=== PATIENT | male | born 1990 | race Hispanic/Latino ===

== ENCOUNTER 2024-03-04 21:37 | Emergency (ER) | payer BC ==
--- OUTSIDE RECORDS SUMMARY | 2024-03-04 21:41 | XMS REPORT | Continuity of Care Document ---
Author Name Unknown Address [address] [place] [address] [facility] Address [address] [facility] [address] [place] [address] Care Team Providers Care Coronary Clinical Specialist Name Role Phone Krishna New Primary Care Physician [phone] Krishna New Attending Clinician Unavailable Edy Quiros MD Attending Clinician [phone] Valentine Ko MD Attending Clinician + [phone] Davide Washington DO Attending Clinician [phone] Nathan Ordoñez MD Attending Clinician [phone] Lien Viveros MD Attending Clinician [phone] CHARISSA MARTINEZ Attending Clinician Unavailable CHARISSA MARTINEZ Attending Clinician Unavailable Charissa Martinez MD Attending Clinician [phone] Davide Washington DO Admitting Clinician [phone] Payers Payer Name Policy Type Policy Number Effective Date Expirati on Date Source [place] [id number] 2018 00:00:00 [facility] Problems Condition Name Condition Details Condition Category Status Onset Date Resolution Date Last Treatment Date Treating Clinician Comments Source E44.0 Moderate protein calorie malnutriti on E44.0 Moderate protein calorie malnutriti on Disease Active 02-28 00:00: 00 [facility] IBD (inflammat ory bowel disease) IBD (inflammat ory bowel disease) Disease Active 02-27 00:00: 00 [facility] Obesity (BMI 30-39.9) Obesity (BMI 30-39.9) Disease Active 02-27 00:00: 00 [facility] Terminal ileitis with complicati on Terminal ileitis with complicati on Disease Active 02-27 00:00: 00 [facility] [id number] Hypertrigl yceridemia Problem [facility] Constipati on Constipati on Problem [facility] Gastroesop hageal reflux disease without esophagiti s Gastroesop hageal reflux disease without esophagiti s Problem [facility] Allergies, Adverse Reactions, Alerts Allergy Name Allergy Type Status Severity Reaction(s) Onset Date Inactive Date Treating Clinician Comments Source NO KNOWN ALLERGIE S Drug Class Active [facility] Social History Social Habit Start Date Stop Date Quantity Comments Source [facility] of tobacco use Cigarette Smoker [facility] Cigarettes smoked current (pack per day) - Reported 2024-02-28 00:00:00 2024-02-28 00:00:00 [facility] Cigarette pack-years 2024-02-28 00:00:00 2024-02-28 00:00:00 [facility] Tobacco use and exposure 2024-02-28 00:00:00 2024-02-28 00:00:00 Smokeless tobacco non-user [facility] History of Social function 2024-02-28 00:00:00 2024-02-28 00:00:00 [facility] Sex assigned at 1990 00:00:00 1990 00:00:00 [facility] Smoking Status Start Date Stop Date Source Tobacco smoking consumption unknown [facility] Occasional tobacco smoker 2024-02-28 00:00:00 [facility] Former Smoker 2024-02-24 00:00:00 2024-02-24 00:00:00 [facility] Medications Ordered Medication Name Filled Medication Name Start Date Stop Date Current Medication? Ordering Clinician Indication Dosage Frequency Signature (SIG) Comments Components Source pantoprazol e (PROTONIX) EC tablet 40 mg 03-03 14:00: 00 Yes 40mg 40 mg, Oral, DAILY, First dose on 03/03/24 at 0900, Until Discontinu ed, Routine [facility] proMETHazin e 12.5 mg tablet 03-03 00:00: 00 Yes [id number] 12.5mg Take 1 tablet by mouth every 4 (four) hours as needed for Nausea and Vomiting (N/V). [facility] budesonide 3 mg 24 hr capsule 03-03 00:00: 00 04-01 04:59 :00 Yes [id number] 9mg Take 3 capsules by mouth every morning for 28 days. [facility] predniSONE (DELTASONE) tablet 40 mg 03-02 22:45: 00 03-02 22:24 :00 No 40mg 40 mg, Oral, ONCE, 1 dose, On Tue03/02/24 at 1745, Routine [facility] morphine (2 mg/mL) injection 2 mg 03-02 06:20: 00 03-02 06:53 :00 No 2mg 2 mg, Slow IV Push, ONCE, 1 dose, On Tue03/02/24 at 0130, Routine [facility] simethicone (GAS RELIEF (SIMETHICON E)) 40 mg/0.6 mL drops 03-01 22:37: 00 03-01 23:50 :31 No PRN, Starting on Audrey 03/01/24 at 1737, Until Audrey 03/01/24 at 1850, Routine, Intra-op [facility] pantoprazol e 20 mg EC tablet 03-01 18:50: 31 Yes 20mg Take 1 tablet by mouth in the morning. [facility] magnesium sulfate in water 4 gram/50 mL (8 %) IV Piggyback 4 g 03-01 11:30: 00 03-01 13:27 :00 No 4g 4 g, IV Piggyback, at 25 mL/hr Administer over 120 Minutes, ONCE, 1 dose, On Tue03/01/24 at 0630, Routine [facility] peg-electro lyte soln (GOLYTELY) 236-22.74-6 .74 -5.86 gram solution 4,000 mL 02-28 23:00: 00 02-28 22:43 :00 No 4000mL 4,000 mL, Oral, ONCE, 1 dose, On Tue02/29/24 at 1800, Routine [facility] bisacodyL (DULCOLAX) tablet 10 mg 02-28 21:00: 00 02-28 20:51 :00 No 10mg 10 mg, Oral, DAILY AT 1500, 1 dose, First dose on Tue02/29/24 at 1600, Routine [facility] peg-electro lyte soln (GOLYTELY) 236-22.74-6 .74 -5.86 gram solution 4,000 mL 02-27 23:00: 00 02-28 00:31 :00 No 4000mL 4,000 mL, Oral, ONCE, 1 dose, On Tue02/28/24 at 1800, Routine [facility] ondansetron (ZOFRAN (PF)) injection 4 mg 02-27 18:05: 52 Yes 4mg 4 mg, Slow IV Push, Q6HPRN, Starting on Tue02/28/24 at 1305, Until Discontinu ed, Routine, Nausea and Vomiting (N/V) [facility] lactated ringers IV infusion 1,000 mL 02-27 09:45: 00 Yes 1000mL at 75 mL/hr, 1,000 mL, IV Infusion, CONTINUOUS , Starting on Tue02/28/24 at 0445, Until Discontinu ed, Routine [facility] proCHLORper azine (COMPAZINE) 5 mg in NaCl 0.9% (NS) piggyback 02-27 09:36: 38 Yes 5mg 5 mg, IV Piggyback, at 100 mL/hr Administer over 30 Minutes, Q6HPRN, Starting on Tue02/28/24 at 0436, Until Discontinu ed, Routine, Nausea and Vomiting (N/V) [facility] pantoprazol e (PROTONIX) injection 40 mg 02-27 09:32: 00 03-02 14:55 :07 No 40mg 40 mg, Slow IV Push, Q24H, First dose on Tue02/28/24 at 0445, Until Discontinu ed [facility] acetaminoph en (TYLENOL) tablet 650 mg 02-27 09:25: 25 Yes 650mg 650 mg, Oral, Q6HPRN, Starting on Tue02/28/24 at 0425, Until Discontinu ed, Routine, Pain (scale 1-3) [facility] NaCl 0.9% (NS) IV infusion 1,000 mL 02-27 05:30: 00 Yes 1000mL at 999 mL/hr, Intravenou s, CONTINUOUS , Starting on Tue02/28/24 at 0030, Until Discontinu ed, Routine [facility] fentanyl PF (SUBLIMAZE (PF)) injection 50 mcg 02-27 05:00: 00 02-27 04:48 :00 No 50ug 50 mcg, Slow IV Push, ONCE, 1 dose, On Tue02/28/24 at 0000, [facility] NaCl 0.9% (NS) IV infusion 1,000 mL 02-27 04:15: 00 Yes 1000mL at 999 mL/hr, Intravenou s, CONTINUOUS , Starting on Tue02/27/24 at 2315, Until Discontinu ed, Routine [facility] iopamidol (ISOVUE 370-500 mL) injection 100 mL 02-27 04:15: 00 02-27 04:15 :00 No [id number] 100mL 100 mL, Intravenou s, ONCE, 1 dose, On Tue02/27/24 at 2315, Routine [facility] fentanyl PF (SUBLIMAZE (PF)) injection 50 mcg 02-27 03:15: 00 02-27 03:13 :00 No 50ug 50 mcg, Slow IV Push, ONCE, 1 dose, On Tue02/27/24 at 2215, [facility] ondansetron (ZOFRAN (PF)) injection 4 mg 02-27 03:15: 00 02-27 03:10 :00 No 4mg 4 mg, Slow IV Push, ONCE, 1 dose, On Tue02/27/24 at 2215, [facility] Pantoprazol e Sodium 20 MG Pantoprazol e Sodium 20 MG No 1{table t} QD Pantoprazo le Sodium 20 MG Vital Signs Vital Name Observation Time Observation Value Comments S ource Systolic blood pressure 2024-03-03 12:18:00 141 mm[Hg] [facility] Diastolic blood pressure 2024-03-03 12:18:00 99 mm[Hg] [facility] Heart rate 2024-03-03 12:18:00 81 /min [facility] Body temperature 2024-03-03 12:18:[address] [facility] Respiratory rate 2024-03-03 12:18:00 16 /min [facility] Oxygen saturation in Arterial blood by Pulse oximetry 2024-03-03 12:18:00 98 /min [facility] Body weight 2024-03-02 09:00:[address] [facility] BMI 2024-03-02 09:00:00 29.97 kg/m2 [facility] Body height 2024-03-01 20:51:[address] [facility] Systolic blood pressure 2024-03-01 20:51:00 149 mm[Hg] [facility] Diastolic blood pressure 2024-03-01 20:51:00 94 mm[Hg] [facility] Heart rate 2024-03-01 20:51:00 98 /min [facility] Body temperature 2024-03-01 20:51:[address] [facility] Respiratory rate 2024-03-01 20:51:00 18 /min [facility] Body height 2024-03-01 20:51:[address] [facility] Body weight 2024-03-01 20:51:[address] [facility] BMI 2024-03-01 20:51:00 29.97 kg/m2 [facility] Oxygen saturation in Arterial blood by Pulse oximetry 2024-03-01 20:51:00 98 /min [facility] Systolic blood pressure 2024-02-28 06:21:00 132 mm[Hg] [facility] Diastolic blood pressure 2024-02-28 06:21:00 94 mm[Hg] [facility] Heart rate 2024-02-28 06:21:00 84 /min [facility] Body temperature 2024-02-28 06:21:[address] [facility] Respiratory rate 2024-02-28 06:21:00 24 /min [facility] Oxygen saturation in Arterial blood by Pulse oximetry 2024-02-28 06:21:00 98 /min [facility] Body height 2024-02-28 02:43:[address] [facility] Body weight 2024-02-28 02:43:[address] [facility] BMI 2024-02-28 02:43:00 29.16 kg/m2 [facility] height 2024-02-20 11:20:00 73 [in_i] Commo n [facility] weight 2024-02-20 11:20:00 267 [lb_av] Comm on [facility] bmi 2024-02-20 11:20:00 35.22 kg/m2 Comm on [facility] height 2022-07-29 09:40:00 73 [in_i] Commo n [facility] weight 2022-07-29 09:40:00 267 [lb_av] Comm on [facility] temperature 2022-07-29 09:40:00 98.9 [degF] Com mon [facility] bmi 2022-07-29 09:40:00 35.22 kg/m2 Comm on [facility] oximetry 2022-07-29 09:40:00 99 % Commo n [facility] respiratory rate 2022-07-29 09:40:00 17 /min [facility] blood pressure systolic 2022-07-29 09:40:00 126 mm[Hg] [facility] blood pressure diastolic 2022-07-29 09:40:00 75 mm[Hg] [facility] height 2020-09-26 08:00:00 73 [in_i] Commo n [facility] weight 2020-09-26 08:00:00 273 [lb_av] Comm on [facility] temperature 2020-09-26 08:00:00 98.5 [degF] Com [facility] bmi 2020-09-26 08:00:00 36.01 kg/m2 Comm on [facility] blood pressure systolic 2020-09-26 08:00:00 125 mm[Hg] Common [facility] blood pressure diastolic 2020-09-26 08:00:00 70 mm[Hg] [facility] height 2020-08-29 08:30:00 73 [in_i] Commo n [facility] weight 2020-08-29 08:30:00 272.6 [lb_av] Co mmon [facility] temperature 2020-08-29 08:30:00 97.3 [degF] Com [facility] bmi 2020-08-29 08:30:00 35.96 kg/m2 Comm on [facility] oximetry 2020-08-29 08:30:00 96 % Commo n [facility] respiratory rate 2020-08-29 08:30:00 17 /min [facility] blood pressure systolic 2020-08-29 08:30:00 130 mm[Hg] [facility] blood pressure diastolic 2020-08-29 08:30:00 78 mm[facility]Hg[facility] Procedures Procedure Date / Time Performed Performing Clinician Source MAGNESIUM 2024-03-02 11:29:[address] [facility] BASIC METABOLIC PANEL (NA, K , CL, CO2, GLUCOSE, BUN, CREATININE, CA) 2024-03-02 11:29:[address] [facility] MAGNESIUM 2024-03-02 11:29:[address] [facility] BASIC METABOLIC PANEL (NA, K , CL, CO2, GLUCOSE, BUN, CREATININE, CA) 2024-03-02 11:29:00 Arie Robles [facility] CBC WITH DIFF 2024-03-02 11:28:[address] [facility] CBC WITH DIFF 2024-03-02 11:28:[address] [facility] COLONOSCOPY (ENDO) 2024-03-01 23:31:[address] [facility] COLONOSCOPY (ENDO) 2024-03-01 23:31:[address] [facility] EGD (ENDO) 2024-03-01 23:29:[address] [facility] EGD (ENDO) 2024-03-01 23:29:[address] [facility] ESOPHAGOGASTRODUODENOSCOPY 2024-03-01 22:09:00 [facility] COLONOSCOPY 2024-03-01 22:09:00 [facility] ESOPHAGOGASTRODUODENOSCOPY 2024-03-01 22:09:00 [facility] COLONOSCOPY 2024-03-01 22:09:00 [facility] MAGNESIUM 2024-03-01 09:28:[address] [facility] BASIC METABOLIC PANEL (NA, K , CL, CO2, GLUCOSE, BUN, CREATININE, CA) 2024-03-01 09:28:00 [facility] CBC WITH DIFF 2024-03-01 09:28:00 [facility] MAGNESIUM 2024-03-01 09:28:00 [facility] BASIC METABOLIC PANEL (NA, K , CL, CO2, GLUCOSE, BUN, CREATININE, CA) 2024-03-01 09:28:00 [facility] CBC WITH DIFF 2024-03-01 09:28:00 [facility] CALPROTECTIN, FECAL 2024-02-29 10:06:00 Rigoberto [facility] CALPROTECTIN, FECAL 2024-02-29 10:06:00 Rigoberto [facility] BASIC METABOLIC PANEL (NA, K , CL, CO2, GLUCOSE, BUN, CREATININE, CA) 2024-02-29 09:54:00 Rigoberto [facility] CBC WITH DIFF 2024-02-29 09:54:00 Rigoberto [facility] BASIC METABOLIC PANEL (NA, K , CL, CO2, GLUCOSE, BUN, CREATININE, CA) 2024-02-29 09:54:00 Rigoberto [facility] CBC WITH DIFF 2024-02-29 09:54:00 Rigoberto [facility] SEDIMENTATION RATE 2024-02-28 19:24:[address] [facility] SEDIMENTATION RATE 2024-02-28 19:24:[address] [facility] LAB ONLY CELIAC SCREEN IGA 2024-02-28 13:11:[address] [facility] C-REACTIVE PROTEIN 2024-02-28 13:11:00 Rigoberto [facility] IRON PANEL 2024-02-28 13:11:00 Rigoberto [facility] PROTHROMBIN TIME / INR 2024-02-28 13:11:00 Rigoberto [facility] ANTI-NUCLEAR ANTIBODY SCREEN 2024-02-28 13:11:[address] [facility] ANTI-NUCLEAR ANTIBODY TITER 2024-02-28 13:11:[address] [facility] ANTI-NUCLEAR ANTIBODY-PATHOL OGIST INTERPRETATION 2024-02-28 13:11:[address] [facility] CELIAC SCREEN 2024-02-28 13:11:[address] [facility] LAB ONLY CELIAC SCREEN IGA 2024-02-28 13:11:00 Arie Robles [facility] C-REACTIVE PROTEIN 2024-02-28 13:11:00 [place], [facility] IRON PANEL 2024-02-28 13:11:00 [place], [facility] PROTHROMBIN TIME / INR 2024-02-28 13:11:00 [place], [facility] ANTI-NUCLEAR ANTIBODY SCREEN 2024-02-28 13:11:00 Arie Robles [facility] ANTI-NUCLEAR ANTIBODY TITER 2024-02-28 13:11:00 Arie Robles [facility] ANTI-NUCLEAR ANTIBODY-PATHOL OGIST INTERPRETATION 2024-02-28 13:11:00 Arie Robles [facility] CELIAC SCREEN 2024-02-28 13:11:00 Arie Robles [facility] BLOOD CULTURE SCREEN 2024-02-28 13:09:00 Arie Robles [facility] HEPATITIS B SURFACE ANTIBODY 2024-02-28 13:09:00 Arie Robles [facility] HEPATITIS B SURFACE ANTIGEN 2024-02-28 13:09:00 Arie Robles [facility] HCV ANTIBODY 2024-02-28 13:09:00 Arie Robles [facility] HAV ANTIBODY (IGG AND IGM) 2024-02-28 13:09:00 Arie Robles [facility] HIV 1/2 AG-AB WITH REFLEX 2024-02-28 13:09:00 Arie Robles [facility] BLOOD CULTURE SCREEN 2024-02-28 13:09:00 Arie Robles [facility] HEPATITIS B SURFACE ANTIBODY 2024-02-28 13:09:00 Robles, Arie [facility] HEPATITIS B SURFACE ANTIGEN 2024-02-28 13:09:[address] [facility] HCV ANTIBODY 2024-02-28 13:09:[address] [facility] HAV ANTIBODY (IGG AND IGM) 2024-02-28 13:09:[address] [facility] HIV 1/2 AG-AB WITH REFLEX 2024-02-28 13:09:[address] [facility] URINALYSIS 2024-02-28 04:02:00 Charissa Martinez [facility] CT ABDOMEN PELVIS W CONTRAST 2024-02-28 03:23:[address] [facility] MAGNESIUM 2024-02-28 03:03:00 Rigoberto [facility] FERRITIN SERUM 2024-02-28 03:03:00 Rigoberto [facility] LIPID PANEL (05182)(TOTAL CHOLESTEROL, TRIGLYCERIDES, HDL) 2024-02-28 03:03:[address] [facility] LIPASE 2024-02-28 03:03:00 Charissa Martinez [facility] COMP. METABOLIC PANEL (08096) 2024-02-28 03:03:00 Charissa Martinez [facility] CBC WITH DIFF 2024-02-28 03:03:[address] [facility] MAGNESIUM 2024-02-28 03:03[facility] 2024-02-28 03:03:00 Rigoberto [facility] LIPID PANEL (82826)(TOTAL CHOLESTEROL, TRIGLYCERIDES, HDL) 2024-02-28 03:03:[address] [facility] Encounters Start Date/Time End Date/Time Encounter Type Admission Type Attending [facility] Care Facility Care Department Encounter ID Source 2024-02-15 08:22[id number] [facility] 2022-07-30 07:36:01 [facility] [id number] [facility] 2022-07-29 09:28:02 [facility] [id number] [facility] 2022-07-28 09:13:01 Outpatient [facility], [facility] [id number] [facility] 2021-07-22 13:59:19 Outpatient [facility] [id number] [facility] 2021-07-22 13:57:55 Outpatient [facility], [facility] [id number] [facility] 2021-07-22 12:36:38 Outpatient New, [facility] [id number] [facility] 2024-02-28 02:30:00 2024-03-03 11:31:00 Hospital Encounter [place], Edy Ko, Valentine [place], Nathan Monroy [facility] [id number] [facility] 2024-03-02 00:00:00 2024-03-02 00:00:00 (TEL) [facility] [id number] [facility] 2024-03-01 16:26:00 2024-03-01 17:22:00 Surgery Lien Viveros [facility] [id number] [facility] 2024-02-27 21:47:00 2024-02-28 01:27:00 Emergency X CHARISSA MARTINEZ WAKILI [facility] ERT [id number] [facility] 2024-02-27 21:47:00 2024-02-28 01:27:00 Emergency Charissa Martinez [facility] [id number] [facility] 2024-02-20 00:00:00 2024-02-20 00:00:00 OFFICE VISIT ESTAB PT LEVEL 3 STLMLC STL[facility]C [id number] [facility] 2024-02-15 00:00:00 2024-02-15 00:00:00 (TEL) STLMLC STLMLC [id number] [facility] 2022-07-30 00:00:00 2022-07-30 00:00:00 (TEL) STLMLC STLMLC [id number] [facility] 2022-07-29 00:00:00 2022-07-29 00:00:00 OFFICE VISIT ESTAB PT LEVEL 3 STLMLC STLMLC [id number] [facility] 2022-07-26 00:00:00 2022-07-26 00:00:00 (TEL) STLMLC STLMLC [id number] [facility] 2020-09-26 00:00:00 2020-09-26 00:00:00 OFFICE VISIT EST PT LEVEL 3 STLMLC STLMLC [id number] [facility] 2020-08-29 00:00:00 2020-08-29 00:00:00 PREV VISIT EST AGE 18-39 STLMLC STLMLC [id number] [facility] Results Test Description Test Time Test Comments Results Result Co mments Source [facility] [id number] 20:14:55* Test Item Value Reference Range Interpretation Comme nts ESR (test code = 03625-0) 75 2-30 H Lab Interpretation (test cod e = 15938-1) Abnormal [facility] [id number] 14:13:18* Test Item Value Reference Range Interpretation Comme nts IRON (test code = 7383876522) 30 ug/dL 50-160 L TIBC (test code = 4563373522) 223 ug/dL 250-410 L % FE SAT (test code = 7514527973) 13 % 20-50 L Lab Interpretation (test cod e = 57392-8) Abnormal [facility] [id number] 14:13:18* Test Item Value Reference Range Interpretation Comme nts IRON (test code = 8210622870) 30 ug/dL 50-160 L TIBC (test code = 3134868933) 223 ug/dL 250-410 L % FE SAT (test code = 8218032920) 13 % 20-50 L Lab Interpretation (test cod e = 86942-4) Abnormal [facility] ABD[facility]EN PELVIS W [id number] 03:48:58ORDERING PHYSICIAN: CATHERINE FRANKEL HISTORY: ?Nausea/vomiting Abdominal pain, acute, nonlocalized Periumbilical Pain, N/V X ONE MONTH with 30 lb weight loss COMPARISON: None available. TECHNIQUE: ?CT scan was performed of the abdomen and pelvis in the axialplane after the administration of intravenous contrast. Coronal andsagittal reformatted images were obtained. This examination was performedaccording to ALARA principles. FINDINGS: ? Heart size normal without pericardial effusion. The visualized lower lungsdemonstrate no mass, confluent airspace opacity, or effusion. At the anterior right lower quadrant mesentery there is ill-definedpossible phlegmon or hypoattenuating solid tumor, measuring 3.4 x 3.3 x 3.4cm, with measurements made on series 2 image 93 and series 4 image 46. Theadjacentmesentery contains inflammation and multiple mesenteric lymphnodes in this region. There is also severe wall thickening and inflammationat the terminal ileum. At the descending colon, sigmoid colon and rectumthere is mural fat and/or mild inflammation. The appendix is visualized andis normal. No bowel obstruction or pneumoperitoneum. No acute findings at liver, gallbladder, spleen, pancreas, adrenal glandsor kidneys. No hydronephrosis or perinephric fat stranding. No free pelvicfluid. No acute o sseous pathology. Very small fat-containing umbilicalhernia.[facility] HospitalCOMPREHENSIVE METABOLIC [id number] 00:00:00* Test Item Value Reference Range Interpretation Comme nts NUCLEATED RBCS (test code = 96734-5) 0.0 /100 WBC'S See_Comment [Automated message] The system which generated this result transmitted reference range: 0.0 /100 WBC'S. The reference range was not used to interpret this result as normal/abnormal. ABSOLUTE EOSINOPHILS (test code = 16168-4) 0.25 K/UL See_Comment [Automated message] The system which generated this result transmitted reference range: 0.00-0.50 K/UL. The reference range was not used to interpret this result as normal/abnormal. ABSOLUTE LYMPHOCYTES (test code = 35687-1) 1.06 K/UL See_Comment [Automated message] The system which generated this result transmitted reference range: 1.00-4.00 K/UL. The reference range was not used to interpret this result as normal/abnormal. ABSOLUTE MONOCYTES (test code = 69043-5) 0.67 K/UL See_Comment [Automated message] The system which generated this result transmitted reference range: 0.20-1.00 K/UL. The reference range was not used to interpret this result as normal/abnormal. ABSOLUTE NEUTROPHILS (test code = 90880-9) 7.39 K/UL See_Comment [Automated message] The system which generated this result transmitted reference range: 1.50-7.50 K/UL. The reference range was not used to interpret this result as normal/abnormal. BASOPHILS (test code = 00316-6) 0.6 % EOSINOPHILS (test code = 42387-8) 2.6 % HEMATOCRIT (test code = 01738-0) 39.3 % See_Comment L [Automated message] The system which generated this result transmitted reference range: 40.0-51.0 %. The reference range was not used to interpret this result as normal/abnormal. HEMOGLOBIN (test code = 718-7) 12.5 G/DL See_Comment L [Automated message] The system which generated this result transmitted reference range: 13.5-17.0 G/DL. The reference range was not used to interpret this result as normal/abnormal. LYMPHOCYTES (test code = 69769-6) 11.2 % MCH (test code = 46040-3) 26.0 PG See_Comment [Automated message] The system which generated this result transmitted reference range: 25.0-33.0 PG. The reference range was not used to interpret this result as normal/abnormal. MCHC (test code = 94148-8) 31.8 G/DL See_Comment [Automated message] The system which generated this result transmitted reference range: 31.0-36.0 G/DL. The reference range was not used to interpret this result as normal/abnormal. MCV (test code = 17208-7) 81.9 fL See_Comment [Automated message] The system which generated this result transmitted reference range: 80.0-99.0 fL. The reference range was not used to interpret this result as normal/abnormal. MONOCYTES (test code = 05402-5) 7.1 % NEUTROPHILS (test code = 53198-1) 78.2 % PLATELET COUNT (test code = 83990-3) 477 K/UL See_Comment H [Automated message] The system which generated this result transmitted reference range: 130-400 K/UL. The reference range was not used to interpret this result as normal/abnormal. RBC (test code = 87469-6) 4.80 M/UL See_Comment [Automated message] The system which generated this result transmitted reference range: 4.50-6.10 M/UL. The reference range was not used to interpret this result as normal/abnormal. RDW (test code = 63806-2) 14.7 % See_Comment [Automated message] The system which generated this result transmitted reference range: 11.5-15.0 %. The reference range was not used to interpret this result as normal/abnormal. WBC (test code = 69840-9) 9.5 K/UL See_Comment [Automated message] The system which generated this result transmitted reference range: 3.5-11.0 K/UL. The reference range was not used to interpret this result as normal/abnormal. HEMOGLOBIN A1c (test code = 4548-4) 5.5 % See_Comment [Automated message] The system which generated this result transmitted reference range: 4.2-5.6 %. The reference range was not used to interpret this result as normal/abnormal. TSH REFLEX TO FREE T4 (test code = 59474-0) 2.380 UIU/ML See_Comment [Automated message] The system which generated this result transmitted reference range: 0.400-4.100 UIU/ML. The reference range was not used to interpret this result as normal/abnormal. APPEARANCE (test code = 5767-9) CLEAR CLEAR BILIRUBIN (test code = 5770-3) NEGATIVE NEGATIVE COLOR (test code = 5778-6) YELLOW YELLOW-STRAW GLUCOSE (test code = 5792-7) NEGATIVE NEGATIVE KETONES (test code = 5797-6) NEGATIVE NEGATIVE LEUKOCYTE ESTERASE (test code = 5799-2) NEGATIVE NEGATIVE NITRITE (test code = 5802-4) NEGATIVE NEGATIVE OCCULT BLOOD (test code = 34154-5) NEGATIVE NEGATIVE pH (test code = 5803-2) 7.5 5.0-9.0 PROTEIN (test code = 27262-4) NEGATIVE NEGATIVE SPECIFIC GRAVITY (test code = 5811-5) 1.013 1.005-1.035 UROBILINOGEN (test code = 43426-0) 0.2 MG/DL See_Comment [Automated message] The system which generated this result transmitted reference range: <=2.0 MG/DL. The reference range was not used to interpret this result as normal/abnormal. CALC LDL CHOL (test code = 37191-5) 76 MG/DL See_Comment [Automated message] The system which generated this result transmitted reference range: <100 MG/DL. The reference range was not used to interpret this result as normal/abnormal. CHOLESTEROL (test code = 2093-3) 133 MG/DL See_Comment [Automated message] The system which generated this result transmitted reference range: <200 MG/DL. The reference range was not used to interpret this result as normal/abnormal. HDL CHOLESTEROL (test code = 2085-9)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 6:45 AM CDT I reviewed the patient's chart and imaging and discussed the case with the resident on 02/28/2024. I agree with the resident's note as written. I actively participated in the decision-making process. Please see the resident's note for additional details. Electronically signed by: Edy Quiros MD Trauma and Acute Care Surgery Faculty [facility] Notes Date/Time Note Provider Source 2024-03-03 09:51:02 Problem: Pain Goal: Control of pain at or below patient's documented comfort goal Outcome: Progressing as expected Goal: Reduction in pain sensation Outcome: Progressing as expected Problem: Discharge Planning Goal: Effective communication Outcome: Progressing as expected Problem: Infection Risk Goal: Absence of infection Outcome: Progressing as expected Problem: Falls, Risk of Goal: Absence of falls Outcome: Resolved Corinna Martinez RN [facility] 2024-03-02 10:14:46 Problem: Pain Goal: Control of pain at or below patient's documented comfort goal Outcome: Progressing as expected Goal: Reduction in pain sensation Outcome: Progressing as expected Problem: Discharge Planning Goal: Effective communication Outcome: Progressing as expected Problem: Infection Risk Goal: Absence of infection Outcome: Progressing as expected Problem: Falls, Risk of Goal: Absence of falls Outcome: Progressing as expected T [facility] 2024-03-01 09:13:35 Problem: Pain Goal: Control of pain at or below patient's documented comfort goal Outcome: Progressing as expected Goal: Reduction in pain sensation Outcome: Progressing as expected Problem: Discharge Planning Goal: Effective communication Outcome: Progressing as expected Problem: Respiratory Function - Impaired Goal: Able to cough effectively Outcome: Resolved Goal: Adequate oxygenation Outcome: Resolved Goal: Adequate work of breathing Outcome: Resolved Goal: Patent airway Outcome: Resolved [facility] 2024-03-01 08:45:00 Rec'd report from Eveline RAO. Pt AAOX4, room air, NPO since midnight, no iso, prep completed and stool appear clear yellow. Lisa Weeks RN [facility] 2024-03-01 03:17:17 Problem: Pain Goal: Control of pain at or below patient's documented comfort goal Outcome: Progressing as expected Goal: Reduction in pain sensation Outcome: Progressing as expected Problem: Discharge Planning Goal: Adequate for discharge Outcome: Progressing as expected Goal: Effective communication Outcome: Progressing as expected Problem: Infection Risk Goal: Absence of infection Outcome: Progressing as expected Problem: Respiratory Function - Impaired Goal: Able to cough effectively Outcome: Progressing as expected Henry Mondragon RN [facility] 2024-02-29 23:55:49 A patient w/ normal wob. Pacheco Alcaraz RT [facility] 2024-02-28 20:53:53 Problem: Pain Goal: Control of pain at or below patient's documented comfort goal Outcome: Progressing as expected Goal: Reduction in pain sensation Outcome: Progressing as expected Problem: Discharge Planning Goal: Adequate for discharge Outcome: Progressing as expected Goal: Effective communication Outcome: Progressing as expected Problem: Infection Risk Goal: Absence of infection Outcome: Progressing as expected Ellie Mcdonald RN [facility] 2024-02-28 10:32:28 Problem: Pain Goal: Control of pain at or below patient's documented comfort goal Outcome: Progressing as expected Goal: Reduction in pain sensation Outcome: Progressing as expected Problem: Discharge Planning Goal: Adequate for discharge Outcome: Progressing as expected Goal: Effective communication Outcome: Progressing as expected Kim Patino RN [facility] 2024-02-28 04:36:00 Pt transferred to floor via WC by [facility] transport T Elda Laughlin RN [facility] 2024-02-28 03:54:29 Report given to Aileen RAO and transport placed [facility] 2024-02-28 02:52:36 Mason Hou is a 33 year old male, AOX4, presents via EMS as a referral for gen surgery for a mass found on the ileum. Pt resting in stretcher, RR e/u, NAD noted, RR e/u. T [facility] 2024-02-28 02:36:00 Surgery team at bedside [facility] 2024-02-28 02:31:43 Surgery returned page and aware of patients arrival. Kaelyn Patterson RN [facility] 2024-02-28 02:28:59 Mason Hou is a 33 year old male who presents to the ED via EMS on stretcher as a referral for gen surg after a CT finding of a mass on the ileum. Pt alert and oriented x4, RR Even and unlabored, skin warm and dry, appropriate for color. Paged at [phone] Laura Brower RN [facility] 2024-02-28 01:24:55 Patient transferred to [place] ED for diagnosis of generalized abd pain. Patient agrees to admission, discussed plan of care with patient and family. Patient is awake, alert, oriented, resp reg unlabored, color appropriate for race, PIV intact. No adverse reaction to medications administered while in ED. Belongings sent with patient. Report to MAIRA Weir. Angelika Pérez RN [facility] 2024-02-28 00:52:24 Report given to MAIRA Weir. from [facility]. [facility] 2024-02-28 00:42:19 [facility] E[facility] 40 to 45 minutes. Keri Harrison [facility] 2024-02-27 22:57:26 Pt attempting to provide a urine sample. Any Malin RN [facility] 2024-02-27 21:41:23 Started on Protonix on last Tuesday for a possible ulcer. Pt stated he thinks the Protonix has been causing nausea. Pt took the medicine at noon and has been vomiting for past 4 hours. Vomiting yellow bile. Generalized abdominal pain and bilateral flank pain. [facility]
[2024-03-04] MEDS ORDERED: NA CHLORIDE 0.9% 1,000 ML ONE (22:37)
[2024-03-04] MEDS ORDERED: METOCLOPRAMIDE 10 MG/2mL INJ ONE (22:37)
[2024-03-04] MEDS ORDERED: MORPHINE 4 MG/ML SYR ONE (22:37)
[2024-03-04 22:41] LABS: Absolute Lymphocytes (CBC) 0.8 K/uL (0.7-4.9); Absolute Monocytes 1.6 K/uL (0.1-1.3); Absolute Neutrophil 16.4 K/uL (1.8-8.0); Basophils % 0.3 % (0-1.3); Eosinophils % 0.2 % (0-4.4); Hematocrit 37.6 % (39.6-49.0); Hemoglobin 12.4 g/dL (13.6-17.9); MCH 25.7 pg (27.0-35.0); MCHC 32.8 g/dL (32.0-36.0); MCV 78.4 fL (80-100); Monocytes % 8.5 % (3.3-12.3); Platelets 541 thou/uL (152-406); Red Cell Distribution Width 15.9 % (12.1-15.2)
[2024-03-04 22:44] LABS: PT Prothrombin Time 19.7 SECONDS (9.4-12.5); PTT, Activated Partial Thromb 33.3 SECONDS (24.3-36.9); Protime INR 1.79
[2024-03-04 22:53] LABS: Albumin 2.7 g/dL (3.4-5.0); Albumin/Globulin Ratio 0.5 (1.1-1.8); Anion Gap 12.4 mEq/L (5.0-15.0); Bilirubin Total 0.7 mg/dL (0.2-1.0); Globulin 5.2 g/dL (2.3-3.5); Potassium 3.4 mEq/L (3.5-5.1); Protein, Total 7.9 g/dL (6.4-8.2)
[2024-03-04 22:55] LABS: Specific Gravity 1.023 (1.005-1.030); Sqamous Epithelial <5 /HPF (None Seen); Urine Bacteria 20-50 /HPF (<20); Urine Bilirubin NEGATIVE (Negative); Urine Blood Negative (Negative); Urine Clarity Extremely Turbid (Clear); Urine Color Yellow (Yellow); Urine Culture Reflex Order NOT NEEDED; Urine Glucose NEGATIVE (Negative); Urine Ketones 3+ (Negative); Urine Microscopic Reflex YN ORDER UMIC; Urine Mucus 1+ /HPF (None Seen); Urine Nitrite NEGATIVE (Negative); Urine Protein TRACE (Negative); Urine RBC None Seen /HPF (None Seen); Urine Urobilinogen 3+ (Normal); Urine WBC <5 /HPF (<5)
[2024-03-04 23:49] LABS: Band Neutrophils 9 % (0-1); Differential Total Cells Count 100; Lymphocytes 3 % (15-42); Monocytes 8 % (0-10); Reactive Lymphocytes 2 %; Segmented Neutrophils 76 % (40-80)
[2024-03-04 23:50] LABS: Blood Morphology Comment NOT SEEN (NOT SEEN); Platelet Estimate ADEQ
--- NOTE | 2024-03-05 02:00 | EDPHYS ---
Physician Documentation [facility] Name: Mason Brown Age: 33 yrs Sex: Male : 1990 Arrival Date: 03/04/2024 Time: 21:37 Bed 13 Private MD: ED Physician Bro Ibrahim HPI: 03/04 22:09 This 33 yrs old Male presents to ER via Ambulatory with complaints of Low Back sb4 Pain, Vomiting, Abdominal pain. 22:09 Patient with history of GERD presents today with complaints of abdominal pain and back sb4 pain for about 1 month now. He went to [facility] 1 week ago for these symptoms and was transferred to [facility] for further GI evaluation. He underwent CT scans, blood work, EGD, colonoscopy and biopsies. He was ultimately told that he likely had Crohn's disease but could not be definitively diagnosed until the pathology came back. He was discharged yesterday with prescription for budesonide and Phenergan and has a follow-up appointment with GI tomorrow. However, the abdominal pain, vomiting, and back pain got significantly worse this evening. Historical: - Allergies: 22:00 No Known Allergies; tm6 - PMHx: 22:00 None; tm6 - PSHx: 22:00 None; tm6 - Immunization history:: Client reports receiving the 2nd dose of the Covid vaccine. - Infectious Disease History:: Denies. - Social history:: Smoking status: unknown. ROS: 22:09 Constitutional: Negative for fever, chills, and weight loss, sb4 22:09 Abdomen/GI: Positive for abdominal pain, nausea, vomiting, 22:09 Back: Positive for pain at rest, 22:09 All other systems are negative, Exam: 22:09 Head/Face: Normocephalic, atraumatic. Eyes: Extra-ocular motions intact. Periorbital sb4 areas with no swelling, redness, or edema. ENT: Mucous membranes moist. Respiratory: Lungs have equal breath sounds bilaterally, clear to auscultation and percussion. No rales, rhonchi or wheezes noted. No increased work of breathing, no retractions or nasal flaring. Skin: Warm, dry with normal turgor. Normal color with no rashes, no lesions, and no evidence of cellulitis. 22:09 Constitutional: The patient appears alert, awake, in obvious pain, uncomfortable, 22:09 Cardiovascular: Rate: tachycardic, Rhythm: regular, 22:09 Abdomen/GI: Inspection: abdomen appears normal, Palpation: soft, moderate abdominal tenderness, in the right lower quadrant and left lower quadrant, Vital Signs: 21:58 BP 151 / 127; Pulse 130; Resp 19; Temp 98.6(O); Pulse Ox 96% on R/A; Weight 106 kg; tm6 Height 6 ft. 0 in. ; Pain 10/10; 22:35 BP 138 / 99; Pulse 105; Resp 17; Pulse Ox 99% on R/A; Pain 9/10; rg5 23:30 BP 129 / 93; Pulse 111; Resp 17; Pulse Ox 99% on R/A; Pain 4/10; rg5 03/05 00:25 BP 124 / 84; Pulse 93; Resp 17; Pulse Ox 98% on R/A; Pain 5/10; rg5 01:31 BP 120 / 87; Pulse 84; sb4 01:35 BP 141 / 91; Pulse 97; Resp 17; Pulse Ox 99% on R/A; Pain 8/10; rg5 02:38 BP 139 / 87; Pulse 96; Resp 17; Pulse Ox 98% ; Pain 8/10; rg5 03:25 BP 129 / 99; Pulse 90; Resp 17; Temp 98.3; Pulse Ox 99% ; Pain 4/10; rg5 03/04 21:58 Body Mass Index 31.69 (106.00 kg, 182.88 cm) tm6 03/04 21:58 Pain Scale: Adult tm6 22:35 Pain Scale: Adult rg5 23:30 Pain Scale: Adult rg5 03/05 00:25 Pain Scale: Adult rg5 01:35 Pain Scale: Adult rg5 02:38 Pain Scale: Adult rg5 03:25 Pain Scale: Adult rg5 Lilly Coma Score: 03/04 21:59 Eye Response: spontaneous(4). Motor Response: obeys commands(6). Verbal Response: rg5 oriented(5). Total: 15. MDM: 21:48 Patient medically screened. sb4 03/05 00:40 Awaiting: CT scan results, CT machine malfunctioning. sb4 02:03 Data reviewed: vital signs, nurses notes, lab test result(s), EKG, radiologic studies, sb4 I have discussed the patient's presentation/case with the attending Emergency Department Physician; and as a result, I will admit patient. Counseling: I had a detailed discussion with the patient and/or guardian regarding the historical points, exam findings, and any diagnostic results supporting the discharge/admit diagnosis, lab results, radiology results, the need to transfer to another facility, for higher level of care, [facility] does not immediately have the required specialist. 02:12 ED course: Discussed with patient and mother his lab/CT results and the need for sb4 transfer for GI services, which is currently unavailable at our facility. Patient is adamant about not going back to [facility], is very unhappy with the care he received. Will attempt to transfer to [facility]. 02:29 ED course: Patient's mother, Santa Carias, can be reached at [phone]. sb4 03/04 22:07 Order name: Blood Culture Adult (2) sb4 03/04 22:07 Order name: CBC with Diff; Complete Time: 23:50 sb4 03/04 22:07 Order name: CMP; Complete Time: 22:56 sb4 03/04 22:07 Order name: Lactate w/ 2H reflex if indic.; Complete Time: 22:56 sb4 03/04 22:07 Order name: Protime (+inr); Complete Time: 22:56 sb4 03/04 22:07 Order name: Ptt, Activated; Complete Time: 22:56 sb4 03/04 22:07 Order name: Urinalysis w/ reflexes; Complete Time: 22:56 sb4 03/04 22:07 Order name: Lipase; Complete Time: 22:56 sb4 03/04 22:31 Order name: Glucose, Ancillary Testing; Complete Time: 22:35 EDMS 03/04 22:51 Order name: Manual Differential; Complete Time: 23:50 EDMS 03/04 22:20 Order name: CT Abd/Pelvis - IV Contrast Only sb4 03/04 22:07 Order name: EKG; Complete Time: 22:08 sb4 03/04 22:07 Order name: Accucheck; Complete Time: 22:20 sb4 03/04 22:07 Order name: Cardiac monitoring; Complete Time: 22:08 sb4 03/04 22:07 Order name: EKG - Nurse/Tech; Complete Time: 00:38 sb4 03/04 22:07 Order name: IV Saline Lock - Large Bore; Complete Time: 22:20 sb4 03/04 22:07 Order name: Labs collected and sent; Complete Time: 22:20 sb4 03/04 22:07 Order name: O2 Per Protocol; Complete Time: :08 sb4 03/04 22:07 Order name: O2 Sat Monitoring; Complete Time: : sb4 03/04 22:07 Order name: Vital Signs; Complete Time: : sb4 EC:38 Rate is 91 beats/min. Rhythm is regular, Normal Sinus Rhythm. WA interval is normal at sb4 130 msec. QRS interval is normal at 78 msec. QT interval is normal at 350 msec. No Q waves. T waves are Normal. No ST changes noted. Clinical impression: Normal ECG and No evidence of ischemia. Interpreted by me. Reviewed by me. Administered Medications: 03/04 22:35 Drug: NS 0.9% IV 1000 ml IV at 1 bolus Per protocol; 1000 mL bolus Route: IV; Rate: 1 rg5 bolus; Site: right antecubital; 03/05 00:00 Follow up: IV Status: Completed infusion; IV Intake: 1000ml rg5 03/04 22:35 Drug: morphine IVP or IV 4 mg IVP once over 4 mins Route: IVP; Infused Over: 4 mins; rg5 Site: right antecubital; 03/05 00:00 Follow up: Response: No adverse reaction; Pain is decreased rg5 03/04 22:35 Drug: metoCLOPramide IVP 10 mg IVP once; over 1 to 2 minutes Route: IVP; Site: right rg5 antecubital; 03/05 00:42 Follow up: Response: No adverse reaction rg5 02:26 Drug: NS 0.9% IV 1000 ml IV at 1 bolus Per protocol; 1000 mL bolus Route: IV; Rate: 1 rg5 bolus; Site: right antecubital; 03:35 Follow up: IV Status: Completed infusion; IV Intake: 1000ml rg5 02:26 Drug: MethylPrednisoLONE IVP 125 mg IVP once Route: IVP; Site: right antecubital; rg5 02:58 Follow up: Response: No adverse reaction rg5 02:26 Drug: Piperacillin-Tazobactam IVPB 3.375 grams IVPB once over 60 mins; (mix in NS 100 rg5 mL) Route: IVPB; Infused Over: 60 mins; Site: right antecubital; 03:20 Follow up: IV Status: Completed infusion; IV Intake: 100ml rg5 02:26 Drug: HYDROmorphone IVP 1 mg IVP once Route: IVP; Site: right antecubital; rg5 02:59 Follow up: Response: No adverse reaction; Pain is decreased rg5 Disposition Summary: 03/05/24 02:00 Transfer Ordered Notes: Transfer Location: [facility] sb4 Reason: Higher level of care sb4 Condition: Fair sb4 Problem: new sb4 Symptoms: are unchanged sb4 Accepting Physician: GI(03/05/24 03:38) rg5 Diagnosis - Crohns flare with developing phlegmon and free fluid sb4 Forms: - Medication Reconciliation Form sb4 - SBAR form sb4 Addendum: 03/09/2024 16:15 I was immediately available for consultation during this patient's visit. I did not e c2 personally see the patient or discuss the patient with the KEISHA. . Signatures: Dispatcher [employer] Ngoc Baker PA-C PA-C sb4 Bro Ibrahim MD MD ec2 Kya Cedeno, RN RN tm6 Reggie Vincent RN RN rg5 Corrections: (The following items were deleted from the chart) 03/04 22:08 22:08 BLOOD CULTURE*+BA.LAB.BRZ ordered. EDTN EDTN 22:08 22:08 CBC+H.LAB.BRZ ordered. EDTN EDMS 22:08 22:08 COMPREHENSIVE METABOLIC PANEL+C.LAB.BRZ ordered. EDTN EDMS 22:08 22:08 LACTATE+C.LAB.BRZ ordered. EDTN EDMS 22:08 22:08 PROTIME (+INR)+COAG.LAB.BRZ ordered. EDTN EDTN 22:08 22:08 PTT, ACTIVATED+COAG.LAB.BRZ ordered. EDTN EDMS 22:08 22:08 Urinalysis+[facility] 03/05 02:20 02:12 ED course: Discussed with patient and mother his lab/CT results and the need for sb4 transfer for GI services. Patient is ad ament about not going back to [facility], is very unhappy with the care he received. Will attempt to transfer to [facility]. sb4 03:38 02:00 GI sb4 rg5
--- NOTE | 2024-03-05 02:00 | ER ---
Nurse's Notes [facility] Name: Mason Brown Age: 33 yrs Sex: Male : 1990 Arrival Date: 03/04/2024 Time: 21:37 Bed 13 Private MD: Diagnosis: Crohns flare with developing phlegmon and free fluid Presentation: 03/04 21:58 Chief complaint: Patient states: was discharged from [facility] yesterday, after tm6 receiving possible diagnosis of Crohns. However, my stomach and back still hurt so bad I cannot sleep. Also having nausea and vomiting. Coronavirus screen: Client denies travel out of the [place] in the last 14 days. Ebola Screen: Patient negative for fever greater than or equal to 101.5 degrees Fahrenheit, and additional compatible Ebola Virus Disease symptoms Patient denies exposure to infectious person. Patient denies travel to an Ebola-affected area in the 21 days before illness onset. No symptoms or risks identified at this time. Initial Sepsis Screen: Does the patient meet any 2 criteria? HR > 90 bpm. Does the patient have a suspected source of infection? No. Patient's initial sepsis screen is negative. Risk Assessment: Do you want to hurt yourself or someone else? Patient reports no desire to harm self or others. Onset of symptoms was March 04, 2024. 21:58 Method Of Arrival: Ambulatory tm6 21:58 Acuity: JESSICA 3 tm6 Triage Assessment: 22:00 General: Appears in no apparent distress. Behavior is calm, cooperative. Pain: tm6 Complains of pain in back and right lower quadrant Pain currently is 10 out of 10 on a pain scale. EENT: No signs and/or symptoms were reported regarding the EENT system. Neuro: Level of Consciousness is awake, alert, obeys commands, Oriented to person, place, time, situation. Cardiovascular: Patient's skin is warm and dry. Respiratory: Airway is patent Respiratory effort is even, unlabored, Respiratory pattern is regular, symmetrical. GI: Reports lower abdominal pain, nausea, vomiting. : No signs and/or symptoms were reported regarding the genitourinary system. Derm: No signs and/or symptoms reported regarding the dermatologic system. Musculoskeletal: Reports pain in back. Historical: - Allergies: 22:00 No Known Allergies; tm6 - PMHx: 22:00 None; tm6 - PSHx: 22:00 None; tm6 - Immunization history:: Client reports receiving the 2nd dose of the Covid vaccine. - Infectious Disease History:: Denies. - Social history:: Smoking status: unknown. Screenin:59 [facility] ED Fall Risk Assessment (Adult) History of falling in the last 3 months, rg5 including since admission No falls in past 3 months (0 pts) Confusion or Disorientation No (0 pts) Intoxicated or Sedated No (0 pts) Impaired Gait No (0 pts) Mobility Assist Device Used No (0 pt) Altered Elimination No (0 pt) Score/Fall Risk Level 0 - 2 = Low Risk Oriented to surroundings, Maintained a safe environment, Hourly rounding (assess needs \T\ fall precautionary measures) done. Abuse screen: Denies threats or abuse. Nutritional screening: No deficits noted. Tuberculosis screening: No symptoms or risk factors identified. Assessment: 21:59 General: Appears in no apparent distress. Behavior is calm, cooperative, appropriate rg5 for age. Pain: Complains of pain in abdomen Pain radiates to back Pain currently is 8 out of 10 on a pain scale. Quality of pain is described as aching, Pain began 1 hour ago. Is continuous. Neuro: Level of Consciousness is awake, alert, obeys commands, Oriented to person, place, time. Cardiovascular: Denies chest pain, shortness of breath. Respiratory: Airway is patent Trachea midline Respiratory effort is even, unlabored, Respiratory pattern is regular, symmetrical. GI: Abdomen is round Reports lower abdominal pain, upper abdominal pain, vomiting. : No signs and/or symptoms were reported regarding the genitourinary system. EENT: No deficits noted. Derm: Skin is intact, Skin is dry, Skin is normal, Skin temperature is warm. Musculoskeletal: Range of motion: intact in all extremities. 22:30 Reassessment: No changes from previously documented assessment. Patient and/or family rg5 updated on plan of care and expected duration. Pain level reassessed. Patient is alert, oriented x 3, equal unlabored respirations, skin warm/dry/pink. 23:34 Reassessment: No changes from previously documented assessment. Patient and/or family rg5 updated on plan of care and expected duration. Pain level reassessed. Patient is alert, oriented x 3, equal unlabored respirations, skin warm/dry/pink. Patient states symptoms have improved. 03/05 00:00 Reassessment: Patient and/or family updated on plan of care and expected duration. Pain rg5 level reassessed. Patient is alert, oriented x 3, equal unlabored respirations, skin warm/dry/pink. 01:30 Reassessment: No changes from previously documented assessment. Patient and/or family rg5 updated on plan of care and expected duration. Pain level reassessed. Patient is alert, oriented x 3, equal unlabored respirations, skin warm/dry/pink. 02:33 Reassessment: No changes from previously documented assessment. Patient and/or family rg5 updated on plan of care and expected duration. Pain level reassessed. Patient is alert, oriented x 3, equal unlabored respirations, skin warm/dry/pink. 03:30 Reassessment: Patient and/or family updated on plan of care and expected duration. Pain rg5 level reassessed. Patient is alert, oriented x 3, equal unlabored respirations, skin warm/dry/pink. Patient states symptoms have improved. Vital Signs: 03/04 21:58 BP 151 / 127; Pulse 130; Resp 19; Temp 98.6(O); Pulse Ox 96% on R/A; Weight 106 kg; tm6 Height 6 ft. 0 in. ; Pain 10/10; 22:35 BP 138 / 99; Pulse 105; Resp 17; Pulse Ox 99% on R/A; Pain 9/10; rg5 23:30 BP 129 / 93; Pulse 111; Resp 17; Pulse Ox 99% on R/A; Pain 4/10; rg5 03/05 00:25 BP 124 / 84; Pulse 93; Resp 17; Pulse Ox 98% on R/A; Pain 5/10; rg5 01:31 BP 120 / 87; Pulse 84; sb4 01:35 BP 141 / 91; Pulse 97; Resp 17; Pulse Ox 99% on R/A; Pain 8/10; rg5 02:38 BP 139 / 87; Pulse 96; Resp 17; Pulse Ox 98% ; Pain 8/10; rg5 03:25 BP 129 / 99; Pulse 90; Resp 17; Temp 98.3; Pulse Ox 99% ; Pain 4/10; rg5 03/04 21:58 Body Mass Index 31.69 (106.00 kg, 182.88 cm) tm6 03/04 21:58 Pain Scale: Adult tm6 22:35 Pain Scale: Adult rg5 23:30 Pain Scale: Adult rg5 03/05 00:25 Pain Scale: Adult rg5 01:35 Pain Scale: Adult rg5 02:38 Pain Scale: Adult rg5 03:25 Pain Scale: Adult rg5 [place] Coma Score: 03/04 21:59 Eye Response: spontaneous(4). Motor Response: obeys commands(6). Verbal Response: rg5 oriented(5). Total: 15. ED Course: 21:41 Patient arrived in ED. ra3 21:41 Bro Ibrahim MD is Attending Physician. ec2 21:48 Ngoc Yee PA-C is PHCP. sb4 21:58 Reggie Vincent, MAIRA is Primary Nurse. rg5 21:59 Patient has correct armband on for positive identification. Bed in low position. Call rg5 light in reach. Side rails up X 1. 21:59 No provider procedures requiring assistance completed. rg5 22:00 Triage completed. tm6 22:00 Arm band placed on right wrist. tm6 03/05 00:38 EKG done, by ED staff. af3 00:58 CT Abd/Pelvis - IV Contrast Only In Process Unspecified. EDMS 02:38 Resting quietly. transfer approval from receiving facility. rg5 03:11 0215 called [facility] talked to Timur Ascencio MD accepted Dr. Rohith Martin 0235 Timur Barnes to [facility] Bed 1651 Report number [phone] fax number [phone] called [facility] for transport talked to Rosaura. 03:30 Provided Education on: needs for transfer. rg5 03:36 Patient transferred, IV remains in place. intact, No redness/swelling at site. rg5 Administered Medications: 03/04 22:35 Drug: NS 0.9% IV 1000 ml IV at 1 bolus Per protocol; 1000 mL bolus Route: IV; Rate: 1 rg5 bolus; Site: right antecubital; 03/05 00:00 Follow up: IV Status: Completed infusion; IV Intake: 1000ml rg5 03/04 22:35 Drug: morphine IVP or IV 4 mg IVP once over 4 mins Route: IVP; Infused Over: 4 mins; rg5 Site: right antecubital; 03/05 00:00 Follow up: Response: No adverse reaction; Pain is decreased rg5 03/04 22:35 Drug: metoCLOPramide IVP 10 mg IVP once; over 1 to 2 minutes Route: IVP; Site: right rg5 antecubital; 03/05 00:42 Follow up: Response: No adverse reaction rg5 02:26 Drug: NS 0.9% IV 1000 ml IV at 1 bolus Per protocol; 1000 mL bolus Route: IV; Rate: 1 rg5 bolus; Site: right antecubital; 03:35 Follow up: IV Status: Completed infusion; IV Intake: 1000ml rg5 02:26 Drug: MethylPrednisoLONE IVP 125 mg IVP once Route: IVP; Site: right antecubital; rg5 02:58 Follow up: Response: No adverse reaction rg5 02:26 Drug: Piperacillin-Tazobactam IVPB 3.375 grams IVPB once over 60 mins; (mix in NS 100 rg5 mL) Route: IVPB; Infused Over: 60 mins; Site: right antecubital; 03:20 Follow up: IV Status: Completed infusion; IV Intake: 100ml rg5 02:26 Drug: HYDROmorphone IVP 1 mg IVP once Route: IVP; Site: right antecubital; rg5 02:59 Follow up: Response: No adverse reaction; Pain is decreased rg5 Medication: 03/04 21:59 VIS not applicable for this client. rg5 Intake: 03/05 00:00 IV: 1000ml; Total: 1000ml. rg5 03:20 IV: 100ml; Total: 1100ml. rg5 03:35 IV: 1000ml; Total: 2100ml. rg5 Outcome: 02:00 ER care complete, transfer ordered by . sb4 03:36 Transferred by ground EMS to [facility], [facility] 03:36 Condition: stable 03:36 Instructed on the need for transfer, 03:38 Patient left the ED. rg5 Signatures: Dispatcher [employer] EDMS Nadya Cruz Sophia, PA-C PA-C sb4 Bro Ibrahim MD MD ec2 Kya Cedeno RN RN 6 Baylee Beyer ra3 Reggie Vincent RN RN rg5 Elda Healy af3 Corrections: (The following items were deleted from the chart) 02:35 02:34 BP 129 / 93; Pulse 111bpm; Resp 17bpm; Pulse Ox 99% RA; Pain 10, Adult; rg5 rg5
[2024-03-05] MEDS ORDERED: METHYLPREDNISOLONE 125 MG INJ ONE (02:12)
[2024-03-05] MEDS ORDERED: HYDROMORPHONE HCL 1 MG/ML INJ ONE (02:13)
[2024-03-05] MEDS ORDERED: NA CHLORIDE 0.9% 1,000 ML ONE (02:13)
[2024-03-05] MEDS ORDERED: PIPERACIL/TAZO 3.375 GM VIAL IV ONE (02:13)
[2024-03-05] MEDS ORDERED: NA CHLORIDE 0.9% 100 ML ONE (02:13)
[2024-03-05 03:53] VITALS: BP 129/99; TEMP 98.3; O2SAT 99
--- NOTE | 2024-03-05 15:17 | RAD REPORT ---
EXAM DESCRIPTION: Abdomen Pelvis W Contrast CLINICAL HISTORY: IV ONLY Bed Name: 13. Abdominal pain COMPARISON: None. TECHNIQUE: Helical imaging was performed from diaphragm through the pelvis after IV contrast adminis tration with multiplanar reformations obtained. Coronal and sagittal reformats were performed and p rovided as separate series. IV CONTRAST: IV contrast dose was not provided GI CONTRAST: GI contrast was not administered CT Radiation Dose: DLP = 1166 mGy-cm All CT scans at this location are performed using dose optimization techniques as appropriate to perf orm the study. Radiation dose reduction technique was utilized including one or more of the following: Automated exp osure control, adjustment of the mA and/or kV according to patient size and use of iterative reconstr uction technique. FINDINGS: LOWER CHEST: The visualized lung bases are clear. LIVER: Unremarkable. GALLBLADDER: Unremarkable. INTRAHEPATIC BILE DUCT AND EXTRAHEPATIC BILE DUCT: Unremarkable. PANCREAS: Unremarkable. SPLEEN: Unremarkable. ADRENALS: Unremarkable. KIDNEYS AND URETERS: The renal contours are normal. There is no hydronephrosis. No calcified daphnie l stones are noted. No surrounding fat stranding is noted. STOMACH: Evaluation of the stomach and bowel is limited due to lack of oral contrast. No gross abno rmalities of the stomach are noted. BOWEL: There is diffuse edematous wall thickening of the distal ileum. Surrounding fat stranding is n oted. There is a focal fluid collection in the right lower quadrant as seen on image 56 of series 3. Surrounding fat stranding is noted. No clear capsular wall is seen. This is consistent with phlegmon and possible early abscess formation. Mild inflammatory changes are noted around the cecum, likely as sociated with ileal inflammation. Mild gaseous distention of the distal ascending and transverse colo n is noted. The descending colon is relatively decompressed. Mild submucosal fat deposition is noted in the descending and sigmoid colon. This is consistent with chronic inflammatory changes. APPENDIX: The appendix is not visualized. PERITONEUM AND RETROPERITONEUM: Small amount of ascites is noted in the right paracolic gutter. No fr ee air is noted. There is no aortic aneurysm or dissection. PELVIS: The prostate is unremarkable. BLADDER: Unremarkable LYMPH NODES: Unremarkable. OSSEOUS STRUCTURES: No acute abnormality seen. SOFT TISSUES: The superficial soft tissues are unremarkable. IMPRESSION: 1. Extensive inflammatory changes in the right lower quadrant involving the terminal ile um and cecum. The appendix is not visualized. Free fluid and developing phlegmon/loculated collection noted in the right lower quadrant. Differential diagnosis would include ruptured acute appendicitis with extensive surrounding associated inflammation versus Crohn's flare of the distal and terminal il eum. Electronically signed by: Tyler Roy MD 03/05/2024 01:27 AM CDT RP Due to temporary technical issues with the PACS/Fluency reporting system, reports are being signed by the in house radiologists without review as a courtesy to insure prompt reporting. The interpreting radiologist is fully responsible for the content of the report.
--- NOTE | 2024-03-05 16:59 | EKG ---
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
== END 2024-03-05 03:38 | disposition short-term general hospital (02) ==
LOC: ER 21:37
DX: K50.918 Crohn's disease, unspecified, with other complication (principal)
CPT/HCPCS: 96365; 96361; 93005; 87040 ×2; 85025; 81001; 36415; 85610; 82947; 83605; 85730; 83690; 80053; 74177; 96375; 99285; Q9967; J2765; J2543; J1170; J2919; J7030 ×2